=== PATIENT | male | born 1960 | race Caucasian/White ===

== ENCOUNTER 2017-12-11 07:30 | Emergency (ER) | payer MEDICAID ==
[~2017-12-11] VITALS: Ht 180.3 cm; Wt 90.9 kg
[~2017-12-11 07:30] MED LIST: NO HOME MEDS
[2017-12-11] MEDS ORDERED: NAPR-56 PO (08:30)
[2017-12-11] MEDS ORDERED: CYCL-1 PO (08:30)
[2017-12-11] MEDS ORDERED: ketorolac trometh inj. 60 MG/2 ML VIAL IM ONE (08:35)
[2017-12-11] MEDS ORDERED: cyclobenzaprine 10mg tablet PO ONE (08:35)
[2017-12-11 09:18] VITALS: BP 142/98
== END 2017-12-11 09:19 | disposition home or self-care (01) ==
LOC: ER 07:30
DX: M54.5 Low back pain (principal); G89.29 Other chronic pain; Z90.49 Acquired absence of other specified parts of digestive tract; Z79.899 Other long term (current) drug therapy; X50.1XXA Overexertion from prolonged static or awkward postures, initial encounter; Y93.89 Activity, other specified; Y92.89 Other specified places as the place of occurrence of the external cause; Y99.8 Other external cause status
CPT/HCPCS: 96372; 99283; J1885

== ENCOUNTER 2020-10-29 21:29 | Emergency (ER) | payer MEDICAID ==
[~2020-10-29] VITALS: Ht 180.3 cm; Wt 95.5 kg
[~2020-10-29 21:29] MED LIST changes: +CYCL-1 PO; +LIDOcaine 1% W/epiNEPHrine 1:100,000 20ml vial ONE
[2020-10-29] MEDS ORDERED: TETanus/Pertussis (Acell)/Diphther VAC/PF (Tdap-Adult) 0.5ml syringe IMVAC ONE (23:40)
[2020-10-30 01:26] VITALS: BP 138/64
== END 2020-10-30 00:30 | disposition home or self-care (01) ==
LOC: ER 21:29
DX: S01.01XA Laceration without foreign body of scalp, initial encounter (principal); G89.29 Other chronic pain; Z85.9 Personal history of malignant neoplasm, unspecified; Z90.49 Acquired absence of other specified parts of digestive tract; Z98.890 Other specified postprocedural states; Z72.89 Other problems related to lifestyle; Z79.899 Other long term (current) drug therapy; W18.39XA Other fall on same level, initial encounter; Y93.01 Activity, walking, marching and hiking; Y92.89 Other specified places as the place of occurrence of the external cause; Y99.8 Other external cause status
CPT/HCPCS: 12004; 12032; 90471; 90715; 99283; 99284

== ENCOUNTER 2024-06-07 15:11 | Emergency (ER) | payer MEDICAID ==
[~2024-06-07] VITALS: Ht 180.3 cm; Wt 100.3 kg
[~2024-06-07 15:11] MED LIST changes: -LIDOcaine 1% W/epiNEPHrine 1:100,000 20ml vial ONE
[2024-06-07 15:15] VITALS: BP 112/78; PULSE 102; RESP 16; TEMP 98; O2SAT 96
[2024-06-07] MEDS: amox tr/potassium clavulanate 875/125mg TAB PO ONE (17:07)
[2024-06-07] MEDS: LIDOcaine 1% 30ml preserv. free vial SQ STA (17:07)
[2024-06-07] MEDS ORDERED: AMOX-580 PO (17:38)
[2024-06-07] MEDS ORDERED: IBUP-1984 PO (17:39)
== END 2024-06-07 17:48 | disposition home or self-care (01) ==
LOC: ER 15:12
DX: S61.210A Laceration without foreign body of right index finger without damage to nail, initial encounter (principal); G89.29 Other chronic pain; Z88.0 Allergy status to penicillin; W54.0XXA Bitten by dog, initial encounter; Y93.89 Activity, other specified; Y92.89 Other specified places as the place of occurrence of the external cause; Y99.8 Other external cause status
CPT/HCPCS: 12001; 73140; 99283; A6258; A6449

== ENCOUNTER 2024-06-10 14:20 | Emergency (ER) | payer MEDICAID ==
[~2024-06-10] VITALS: Ht 180.3 cm; Wt 102.8 kg
[~2024-06-10 14:20] MED LIST changes: +AMOX-580 PO; +IBUP-1984 PO
[2024-06-10 14:54] VITALS: BP 113/75; PULSE 87; RESP 18; TEMP 98.6; O2SAT 98
== END 2024-06-10 15:06 | disposition home or self-care (01) ==
LOC: ER 14:21
DX: S61.210D Laceration without foreign body of right index finger without damage to nail, subsequent encounter (principal); G89.29 Other chronic pain; Z79.899 Other long term (current) drug therapy; Z79.1 Long term (current) use of non-steroidal anti-inflammatories (NSAID); Z79.2 Long term (current) use of antibiotics; Z90.49 Acquired absence of other specified parts of digestive tract; W54.0XXD Bitten by dog, subsequent encounter
CPT/HCPCS: 99281